=== PATIENT | male | born 1945 | race Caucasian/White ===

== ENCOUNTER → 2016-07-23 | Outpatient (CLI) | payer MEDICARE, OTHER ==
[~2016-07-23] VITALS: Ht 172.7 cm; Wt 82.1 kg
[~2016-07-23] MED LIST: ASPI81TA2 PO; ATOR10TA PO; Albuterol Sulfate NEB; FENTANYL PF 100 MCG/2 ML VIAL. IV ONE; FENTANYL PF 100 MCG/2 ML VIAL. ONE; FLUT1DIS3 INH; GEMF600T PO; LABE200T2 PO; LIDOCAINE 1%/EPI 1:100,000 20 ML VIAL. IJ ONE; LIDOCAINE 1%/EPI 1:100,000 20 ML VIAL. ONE; MIDAZOLAM HCL 2 MG/2 ML VIAL. IV ONE; MIDAZOLAM HCL 2 MG/2 ML VIAL. ONE; ONDA-35 PO; PRAV40TA2 PO; PRED50TA PO
[2016-07-23 07:33] VITALS: BP 190/105
[2016-07-23 07:43] LABS: BASO # 0.1 x10^3/uL (0.0-0.2); BASO % 1 % (0-3); EOS % 2 % (0-3); HEMATOCRIT 46.4 % (39.0-53.0); HEMOGLOBIN 15.5 g/dL (13.0-17.5); LYMPH # 1.9 x10^3/uL (1.0-4.8); LYMPH % 22 % (24-48); MEAN CORPUSCULAR HEMOGLOBIN 31 pg (25-35); MEAN CORPUSCULAR HGB CONC 33 g/dL (31-37); MEAN CORPUSCULAR VOLUME 93 fL (79-100); MONO % 13 % (0-9); NEUT % 63 % (31-73); PLATELET COUNT 151 x10^3/uL (140-400); RED BLOOD COUNT 4.98 x10^6/uL (4.30-5.70); RED CELL DISTRIBUTION WIDTH 14.1 % (11.5-14.5); WHITE BLOOD COUNT 8.3 x10^3/uL (4.0-11.0)
[2016-07-23 07:53] LABS: PROTHROMBIN TIME PATIENT 12.3 SEC (11.7-14.0)
[2016-07-23 09:07] VITALS: BP 167/101
--- NOTE | 2016-07-23 09:13 | PDOC ---
MODERATE SEDATION ASSESSMENT RISKS/ALTERNATIVES Risks/Alternatives Risks and alternatives of this type of sedation and procedure discussed with: RISK/ALTERNATIVES: Patient H & P ON CHART H & P H & P on chart and reviewed for co-morbid conditions and appropriate labs. H&P ON CHART: Yes STATUS PREG STATUS ASSESSED: N/A MEDS/ALLERGIES REVIEWED Meds/Allergies Reviewed Medications and Allergies including time and route of recently administered narcotics and sedatives. MEDS/ALLERGIES REVIEWED: Yes ASA RATING ASA RATING: II AIRWAY ASSESSMENT Airway Assessment Airway patency, oral function limitations, presence of caps, crowns, dentures, partials, and ability to extend neck assessed. AIRWAY ASSESSMENT: Yes MALLAMPATI SCORE MALLAMPATI SCORE: II PRE-SEDATION ASSESSMENT PRE-SEDATION ASSESSMENT: Yes REBEL RUSSELL MD Jul 23, 2016 09:13
--- NOTE | 2016-07-23 09:16 | PDOC1 ---
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 Past Medical History Past Medical History See Nursing Pre Procedure PMH Past Surgical History Past Surgical History See Nursing Pre Procedure PSH---includes prior Power Port insertion Current Medications Current Medications Current Medications Lidocaine/ Epinephrine 20 ml 20 ml STK-MED ONCE .ROUTE ; Start 07/23/16 at 07:55 ; Stop 07/23/16 at 07:56; Status DC Heparin Sodium/ Sodium Chloride 500 ml @ As Directed STK-MED ONCE .ROUTE ; Start 07/23/16 at 07:55; Stop 07/23/16 at 07:56; Status DC Fentanyl Citrate (Fentanyl 2ml Vial) 100 mcg STK-MED ONCE .ROUTE ; Start at 08:02; Stop 07/23/16 at 08:03; Status DC Midazolam HCl (Versed) 2 mg STK-MED ONCE .ROUTE ; Start 07/23/16 at 08:03; Stop 07/23/16 at 08:04; Status DC Heparin Sodium/ Sodium Chloride 1,000 unit 1X ONCE IART Last administered on 09:01; Start 07/23/16 at 09:00; Stop 07/23/16 at 09:01; Status DC Midazolam HCl (Versed) 2 mg 1X ONCE IV Last administered on 07/23/16 09:02; Start 07/23/16 at 08:42; Stop 07/23/16 at 08:53; Status DC Fentanyl Citrate (Fentanyl 2ml Vial) 100 mcg 1X ONCE IV Last administered on 09:02; Start 07/23/16 at 08:42; Stop 07/23/16 at 08:53; Status DC Lidocaine/ Epinephrine (Xylocaine 1%-Epi 1:100,000) 20 ml 1X ONCE IJ Last administered on 07/23/16 09:02; Start 07/23/16 at 08:48; Stop 07/23/16 at 08:53 ; Status DC Active Scripts Active Advair 250-50 Diskus (Fluticasone/Salmeterol) 1 Puff Puff 1 Puff INH BID [Albuterol Sulfate] 2.5 MG/3 ML Nebu 2.5 Mg NEB RTQID Lipitor (Atorvastatin Calcium) 10 Mg Tablet 10 Mg PO QHS Reported Aspirin 81 Mg Tab.chew 81 Mg PO DAILY Allergies Allergies: Coded Allergies: No Known Drug Allergies (Unverified , 04/18/15) Physical Exam Vital Signs Vital Signs Date Time Temp Pulse Resp B/P Pulse Ox O2 Delivery O2 Flow Rate FiO2 07/23/16 09:07 73 16 98 Room Air 07/23/16 09:02 2.0 07/23/16 07:33 98.1 190/105 98.1 Lungs: Clear to auscultation Heart: Regular rate Psych/Mental Status: Mental status NL Assessment Assessment Lymphoma in remission---Port no longer needed. Problems: Plan Plan Rt IJ Power Port removal. REBEL RUSSELL MD Jul 23, 2016 09:16
--- NOTE | 2016-07-23 09:18 | PDOC ---
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 Post-Procedure Diagnosis Post-Procedure Diagnosis Same Procedure Performed Procedure Performed Rt IJ Power Port removal Type of Anesthesia Type of Anesthesia Local + Mod sedation Estimated Blood Loss EBL: Minimal Specimens Specimans 8F rt IJ tunneled Power Port removed and discarded Condition of Patient Condition of Patient Stable. No apparent complication. Disposition Disposition Home from OBS post recovery, if no problems. F/u with Dr Cabrera. Full report to follow. REBEL RUSSELL MD Jul 23, 2016 09:18
--- NOTE | 2016-07-23 09:23 | RAD ---
Removal of Power Port Indication: 70-year-old male with lymphoma in remission. Power port no longer needed. Power port removal requested. Moderate sedation: 23 minutes moderate sedation was provided utilizing a total of 2 mg Versed and 100 mcg fentanyl, IV. The patient was appropriately monitored by a qualified independent observer throughout the course of the moderate sedation. Sterility: All elements of maximal sterile barrier technique, including the use of a cap, mask, sterile gown, sterile gloves, large sterile sheet, appropriate hand hygiene, and 2% chlorhexidine for cutaneous antisepsis (or acceptable alternative antiseptic per current guidelines) were utilized. Fluoroscopy time: 0.1 minutes Kerma-Area Product: 1 Gycm2 Procedure: Informed consent was obtained from the patient. He was placed supine on the angiography table. Right chest was prepped and draped in the usual sterile fashion, utilizing all elements of maximal sterile barrier technique, as described above. Conscious sedation was provided with IV versed and fentanyl. Using aseptic technique and local anesthesia, a small horizontally oriented skin incision was made overlying body of the indwelling Power Port. Subsequently, using a combination of blunt and sharp dissection, the Power Port body was freed from surrounding soft tissues. The port body and catheter were then easily removed as a single unit, using gentle traction. Hemostasis was achieved using manual pressure over right internal jugular vein. The chest incision was then closed with 2-0 Vicryl, 4-0 Vicryl, steri-strips, and sterile dressing. Complete removal of the Power Port was confirmed with pre- and post-procedure fluoroscopic spot images. Patient tolerated the procedure well, without apparent complication. Impression: Successful, uneventful removal of right IJ tunneled Power Port, as described.
[2016-07-23 09:30] VITALS: BP 180/102
[2016-07-23 09:45] VITALS: BP 185/100
[2016-07-23 10:00] VITALS: BP 182/110
== END | disposition home or self-care (01) ==
LOC: INTRAD 06:44
PROVIDERS: ATTEND Internal Medicine Hematology & Oncology
DX: Z45.2 Encounter for adjustment and management of vascular access device (principal); C85.90 Non-Hodgkin lymphoma, unspecified, unspecified site; I10 Essential (primary) hypertension; Z90.49 Acquired absence of other specified parts of digestive tract
CPT/HCPCS: 36415; 36590; 77001; 85027; 85610; J2250; J3010; J3490

== ENCOUNTER → 2016-11-06 | Outpatient (CLI) | payer MEDICARE, OTHER ==
[2016-07-23 10:00] VITALS: BP 182/110
[~2016-11-06] MED LIST changes: +CHOL10003 PO; +CONTRAST GIVEN MC PRN; -FENTANYL PF 100 MCG/2 ML VIAL. IV ONE; -FENTANYL PF 100 MCG/2 ML VIAL. ONE; +IOHEXOL 240 MG/ML 50ML VIAL. PO ONE; +IOHEXOL 300 MG/ML 75 ML VIAL IV ONE; -LIDOCAINE 1%/EPI 1:100,000 20 ML VIAL. IJ ONE; -LIDOCAINE 1%/EPI 1:100,000 20 ML VIAL. ONE; +LORA10TA68 PO; +LOSA1TAB16 PO; -MIDAZOLAM HCL 2 MG/2 ML VIAL. IV ONE; -MIDAZOLAM HCL 2 MG/2 ML VIAL. ONE; +OMEG300C PO
--- NOTE | 2016-11-06 09:36 | RAD ---
Indication B-cell lymphoma. Staging. Axial images through the chest abdomen and pelvis were obtained. Both IV and oral contrast were administered. 75 cc of Omnipaque 300 was administered intravenously. Comparison is made to a study 07/09/2016. CT chest: Findings. The thoracic aorta appears unremarkable. There is no significant axillary adenopathy. There is no significant hilar or mediastinal adenopathy. No acute parenchymal infiltrate is seen in either lung. There are occasional calcified granulomas in the left lung similar to the previous exam. A dominant soft tissue mass in either lung is not seen. There is a tiny noncalcified 2 mm nodule in the left upper lobe, image 18 series 2, similar to the previous exam. There is unchanged sclerosis associated with the T3 vertebral body. CT abdomen and pelvis: Findings. There is marked splenomegaly representing a change compared to the previous exam. The liver appears unremarkable. Clips are noted in the gallbladder fossa. There are right renal cysts appearing similar to the previous exam. The adrenal glands appear normal and the pancreas appears unremarkable. There is no significant central or retroperitoneal adenopathy. An acute finding in the abdomen is not seen. No acute finding is seen in the pelvis. There is no significant pelvic or inguinal adenopathy. The prostate is mildly enlarged IMPRESSION: No acute finding seen in the chest, abdomen or pelvis While there is no significant adenopathy seen in the chest, abdomen or pelvis there is now marked splenomegaly representing a new finding compared to the previous exam. Recurrent lymphoma is not excluded. PQRS Compliance Statement: One or more of the following individualized dose reduction techniques were utilized for this examination: 1. Automated exposure control 2. Adjustment of the mA and/or kV according to patient size 3. Use of iterative reconstruction technique
== END | disposition home or self-care (01) ==
LOC: CT 07:33
PROVIDERS: ATTEND Internal Medicine Hematology & Oncology
DX: C85.10 Unspecified B-cell lymphoma, unspecified site (principal); I10 Essential (primary) hypertension
CPT/HCPCS: 71260; 74177; Q9966; Q9967

== ENCOUNTER → 2016-11-13 | Outpatient (CLI) | payer MEDICARE, OTHER ==
[2016-11-12 15:00] VITALS: BP 140/78
[~2016-11-13] MED LIST changes: +ALLO100T PO; +ASPI-630 PO; -ASPI81TA2 PO; -CONTRAST GIVEN MC PRN; -IOHEXOL 240 MG/ML 50ML VIAL. PO ONE; -IOHEXOL 300 MG/ML 75 ML VIAL IV ONE; -ONDA-35 PO; +ONDA4TAB11 PO; +ONDA8TAB15 PO
--- NOTE | 2016-11-13 15:59 | RAD ---
Indication B-cell lymphoma. PET/CT was performed from the skull through the proximal thigh. CT was performed primarily for localization and attenuation purposes as opposed primary diagnostic purposes. The blood sugar during the examination was 76. 12 mCi of FDG was administered. No prior PET/CT imaging is available. Note is made of the recent examination of the chest abdomen and pelvis 11/06/[address] the visualized brain is unremarkable. No significant finding is seen in the neck. No additional or significant new finding in the chest, abdomen or pelvis relative to the examination one week ago is seen. There is a trace amount of left pleural fluid on today's examination which was not present previously. On PET the FDG is physiologically distributed in the brain. No abnormal uptake is seen in the neck. No focal abnormal FDG uptake is seen in the chest. There is, however, diffuse increased FDG activity associated with both lungs which has a relatively symmetric appearance. The FDG uptake, in the lungs, seems out of proportion to any interstitial component demonstrated on CT although subtle groundglass opacities are suggested in the lungs, in retrospect, on the CT examination one week ago. Maximum SUV in the lungs is approximately 2.8. The etiology is unclear but diffuse interstitial lung disease should be considered. Diffuse neoplastic interstitial lung disease is not entirely excluded. The markedly enlarged spleen is significantly FDG avid. Maximum SUV is approximately 25. (Corresponding value in the liver is approximately 3). No FDG avid adenopathy is seen in the abdomen or pelvis. IMPRESSION: The enlarged spleen is markedly FDG avid. 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 Diffuse interstitial lung disease should be considered. Neoplastic involvement not excluded.
== END | disposition home or self-care (01) ==
LOC: PETSC 13:21
PROVIDERS: ATTEND Internal Medicine Hematology & Oncology
DX: C85.10 Unspecified B-cell lymphoma, unspecified site (principal); R16.1 Splenomegaly, not elsewhere classified
CPT/HCPCS: 78815; A9552

== ENCOUNTER → 2017-02-20 | Outpatient (CLI) | payer MEDICARE, OTHER ==
[2016-11-22 11:00] VITALS: BP 110/66
--- NOTE | 2017-02-20 10:29 | KCIC ---
INDICATION: Lower extremity numbness. Lymphoma. Falls, unsteady gait. TECHNIQUE: Sagittal T1, sagittal T2, sagittal STIR, axial T1, and axial T2 sequences are provided. Axial sequences are mildly degraded by motion. No comparison is available. FINDINGS: There is no malalignment. There is no marrow edema. There is no worrisome marrow lesion. There is no decreased marrow signal on T1 imaging to suggest myeloproliferative process. There is disc desiccation diffusely. There is mild narrowing of disc height at L4-L5 and L5-S1. The conus medullaris is normal in signal intensity and in position. Subcutaneous edema is noted. Right renal cyst measures 5.7 cm. The numbering system assumes 5 lumbar type vertebral bodies. Findings by individual level are as follows: T12-L1: Minimal disc bulge is noted without canal or foraminal compromise. L1-L2: Minimal facet hypertrophy is noted with minimal right foraminal narrowing. L2-L3: Minimal facet and ligamentum flavum hypertrophy are noted with minimal foraminal narrowing. L3-L4: Mild disc bulge and facet hypertrophy are noted. There is no canal stenosis. There is mild left lateral recess narrowing. There is mild left and minimal right foraminal narrowing. L4-L5: In addition to a mild disc bulge there is a very tiny extrusion-type herniation migrating superiorly which is right paracentral, 1 to 2 mm AP by 5 mm transverse by 9 mm craniocaudal. There is mild facet and ligamentum flavum hypertrophy. There is mild left lateral recess narrowing. There is no canal stenosis. There is moderate left and mild right foraminal narrowing. L5-S1: Minimal disc osteophyte complex is noted without canal or foraminal compromise. IMPRESSION: 1. Mild degenerative disc disease and facet and ligamentum flavum hypertrophy are noted throughout the lumbar spine, findings are greatest at L3-L4 and L4-L5. 2. No evidence of a marrow replacing process. Electronically signed by: Tariq Means MD (02/20/2017 10:26 AM) [id number]
--- NOTE | 2017-02-20 10:36 | KCIC ---
INDICATION: Left leg weakness. Lymphoma diagnosed in 2015. Falls, unsteady gait TECHNIQUE: Sagittal T1, axial T1, axial T2, axial FLAIR, axial T2 gradient, coronal T2, and diffusion imaging with ADC map was performed. No comparison is available. FINDINGS: There is prominence of the ventricles and sulci. FLAIR hyperintensities scattered throughout the supratentorial white matter are not specific but most suggestive of minimal small vessel ischemic disease. There is no acute intracranial hemorrhage or extra-axial fluid collection. There is no mass effect or midline shift. There is no restricted diffusion to suggest an acute infarct. Sagittal midline structures are unremarkable. Pituitary and suprasellar region are unremarkable. Intracranial flow voids are preserved. There is minimal ethmoid mucosal thickening and maxillary mucosal thickening. Mastoid air cells are clear. Clival marrow signal is preserved. IMPRESSION: 1. No acute intracranial findings. 2. Brain parenchymal volume loss and mild probable small vessel ischemic disease. Electronically signed by: Tariq Means MD (02/20/2017 10:32 AM) [email or web address]
== END | disposition home or self-care (01) ==
LOC: KCIC MRI 08:17
PROVIDERS: ATTEND Internal Medicine
DX: M51.36 Other intervertebral disc degeneration, lumbar region (principal); C85.90 Non-Hodgkin lymphoma, unspecified, unspecified site; R20.0 Anesthesia of skin; R53.1 Weakness
CPT/HCPCS: 70551; 72148